=== PATIENT | female | born 1990 | race Caucasian/White ===

== ENCOUNTER 2018-07-17 05:58 | Day surgery (SDC) | payer OTHER ==
[2018-07-17] MEDS ORDERED: MIDAZOLAM 1 MG/ML 2 ML INJ ×2 (08:03)
[2018-07-17] MEDS ORDERED: FENTAnyl 50 MCG/ML VIAL (08:03)
== END 2018-07-17 10:18 | disposition home or self-care (01) ==
LOC: GIL 05:58
DX: K29.50 Unspecified chronic gastritis without bleeding (principal)
CPT/HCPCS: 43239; 84703; 88305; 88312